=== PATIENT | male | born 1950 | race Caucasian/White ===

== ENCOUNTER 2016-10-23 16:34 | Inpatient (IN) | payer OTHER ==
[~2016-10-23] VITALS: Ht 167.6 cm; Wt 68.6 kg
[~2016-10-23 16:34] MED LIST: OMEP40CA6 PO; RANI300T PO
[2016-10-23 17:51] VITALS: TEMP 98.5
[2016-10-23 20:02] LABS: BASOPHILS % 0.3 % (0.0-2.0); EOSINOPHILS # 0.2 10^3/ul (0.0-0.5); EOSINOPHILS % 3.9 % (0.0-7.0); HEMATOCRIT 41.8 % (42.0-52.0); LYMPHOCYTES # 1.6 10^3/ul (0.8-2.9); LYMPHOCYTES % 26.2 % (15.0-51.0); MEAN CORPUSCULAR HEMOGLOBIN 32.8 pg (29.0-33.0); MEAN CORPUSCULAR HGB CONC 35.9 g/dl (32.0-37.0); MEAN CORPUSCULAR VOLUME 91.5 fl (82.0-101.0); MEAN PLATELET VOLUME 9.1 fl (7.4-10.4); MONOCYTE # 0.5 10^3/ul (0.3-0.9); MONOCYTES % 7.9 % (0.0-11.0); NEUTROPHIL # 3.7 10^3/ul (1.6-7.5); NEUTROPHILS % 61.5 % (39.0-77.0); PLATELET COUNT 218 10^3/UL (140-415); RED BLOOD COUNT 4.57 10^6/ul (4.70-6.10); RED CELL DISTRIBUTION WIDTH 12.1 % (11.5-14.5)
--- NOTE | 2016-10-23 20:10 | RADRPT ---
PROCEDURE: XR Chest. CLINICAL INDICATION: Chest pain. TECHNIQUE: Single frontal view. COMPARISON: 01/08/2015. FINDINGS: The lungs are clear. The heart size is normal. There is no pleural effusion. There is no pneumothorax. IMPRESSION: 1. Normal chest radiograph. 2. No change from 01/08/2015. RPTAT: QQ .Ariel Mathew MD, MD Date Time Electronically viewed and signed by .Ariel Mathew MD, MD on 10/23/2016 20:09 .R/
[2016-10-23 20:17] LABS: INR 1.15; PROTIME 14.7 Sec (12.2-14.2); PT RATIO 1.1
[2016-10-23 20:18] LABS: ANION GAP 19 (8-16); BLOOD UREA NITROGEN 19 mg/dl (7-20); CALCIUM 9.4 mg/dl (8.4-10.2); CARBON DIOXIDE 25 mmol/L (21-31); CHLORIDE 106 mmol/L (97-110); CREATININE 0.96 mg/dl (0.61-1.24); GLUCOSE 90 mg/dl (70-220); PARTIAL THROMBOPLASTIN TIME 36.2 Sec (25.0-35.0); SODIUM 146 mmol/L (135-144)
[2016-10-23 20:31] LABS: TROPONIN-I < 0.012 ng/ml (0.00-0.12)
--- NOTE | 2016-10-23 20:33 | ERA ---
ER Documentation Chief Complaint Date/Time DATE: 10/23/16 TIME: 20:29 Chief Complaint complains of dizziness x 1 week HPI This is a 66-year-old male with a past medical history of GERD who is presenting with approximately 4 days of dizziness. The patient reports that this is never happened before. He says that when he lies down, he feels okay. However when he brings his head up or tries to stand he feels very lightheaded and imbalanced. The patient does not have a cardiac history. He denies any history of hypertension or hyperlipidemia. He has never had a heart attack as far as he is aware. He has never had a stroke. The patient has felt well otherwise. He denies any changes in vision. He denies any chest pain or trouble breathing. He denies any abdominal pain. He does not have any weakness or numbness or tingling to the face or extremities ROS All systems reviewed and are negative except as per history of present illness. Medications Home Meds Reported Medications Ranitidine Hcl* (Ranitidine Hcl*) 300 Mg Tablet, 300 MG PO HS, #30 TAB 11/19/15 Omeprazole* (Omeprazole*) 40 Mg Capsule.dr, 40 MG PO DAILY, #30 CAP 11/19/15 Allergies Allergies: Coded Allergies: No Known Drug Allergies (Verified Allergy, Mild, 10/23/16) PMhx/Soc History of Surgery: Yes (APPENDECTOMY) Anesthesia Reaction: No Hx Neurological Disorder: No Hx Respiratory Disorders: No Hx Cardiac Disorders: No Hx Psychiatric Problems: No Hx Miscellaneous Medical Probl: Yes (GERD) Hx Alcohol Use: No Hx Substance Use: No Hx Tobacco Use: No Smoking Status: Never smoker FmHx Family History: No coronary disease, No diabetes Physical Exam Vitals Vital Signs Date Time Temp Pulse Resp B/P Pulse Ox O2 Delivery O2 Flow Rate FiO2 10/23/16 18:53 51 17 129/88 98 Room Air 10/23/16 17:51 98.5 53 20 143/94 97 Room Air 10/23/16 16:37 98.8 62 20 125/80 97 Physical Exam Const: No apparent distress Head: Atraumatic Eyes: Normal Conjunctiva ENT: Normal External Ears, Nose and Mouth. Neck: Full range of motion..~ No meningismus. Resp: Clear to auscultation bilaterally Cardio: Regular rhythm, no murmurs, bradycardia Abd: Soft, non tender, non distended. Normal bowel sounds Skin: No petechiae or rashes Back: No midline or flank tenderness Ext: No cyanosis, or edema Neur: Awake and alert Psych: Normal Mood and Affect Result Diagram: 10/23/16192910/23/161929 Results 24 hrs Laboratory Tests Test 10/23/16 19:30 White Blood Count 6.010^3/ul Red Blood Count 4.5710^6/ul Hemoglobin 15.0g/dl Hematocrit 41.8% Mean Corpuscular Volume 91.5fl Mean Corpuscular Hemoglobin 32.8pg Mean Corpuscular Hemoglobin Concent 35.9g/dl Red Cell Distribution Width 12.1% Platelet Count 61852^3/UL Mean Platelet Volume 9.1fl Neutrophils % 61.5% Lymphocytes % 26.2% Monocytes % 7.9% Eosinophils % 3.9% Basophils % 0.3% Nucleated Red Blood Cells % 0.0/100WBC Neutrophils # 3.710^3/ul Lymphocytes # 1.610^3/ul Monocytes # 0.510^3/ul Eosinophils # 0.210^3/ul Basophils # 0.010^3/ul Nucleated Red Blood Cells # 0.010^3/ul Prothrombin Time 14.7Sec Prothrombin Time Ratio 1.1 INR International Normalized Ratio 1.15 Activated Partial Thromboplast Time 36.2Sec Sodium Level 146mmol/L Potassium Level 4.0mmol/L Chloride Level 106mmol/L Carbon Dioxide Level 25mmol/L Anion Gap 19 Blood Urea Nitrogen 19mg/dl Creatinine 0.96mg/dl Glucose Level 90mg/dl Calcium Level 9.4mg/dl Troponin I < 0.012ng/ml Current Medications Medications (Trade) Dose Ordered Sig/Nissa Route PRN Reason Start Time Stop Time Status Last Admin Dose Admin Sodium Chloride (NS) 1,000 ml @ 1,000 mls/hr Q1H ONCE IV 10/23/16 21:00 10/23/16 21:59 DC 10/23/16 21:11 Ondansetron HCl (Zofran Inj) 4 mg ER BRIDGE PRN IV NAUSEA AND/OR VOMITING 10/23/16 21:30 10/24/16 21:29 Acetaminophen (Tylenol Tab) 650 mg ER BRIDGE PRN PO MILD PAIN/FEVER 10/23/16 21:30 10/24/16 21:29 Procedures/MDM The patient is presenting with dizziness. He is found to be significantly bradycardic on exam between 45 and 50 bpm. I am concerned about symptomatic bradycardia in this patient. EKG read by me: Rate/Rhythm: Regular rhythm, sinus bradycardia at 48 bpm Intervals: Normal Access: Normal Impression: No evidence of ischemia or arrhythmia. However, marketed sinus bradycardia with T-wave inversions in leads V3 through V5 and T-wave flattening in most other leads The patient's chest x-ray shows a normal cardiomediastinal silhouette. The patient does not have findings of pneumonia or pleural effusion or pulmonary edema. There are vascular markings to the periphery, and I do not suspect pneumothorax. The patient's blood work was obtained and reviewed. The patient's CBC, CMP and troponin were unremarkable at this time. While the workup is reassuring, the patient does appear to have symptomatic bradycardia that needs further workup. The patient will be admitted to the hospitalist service. He will likely require cardiology consultation. Departure Diagnosis: Primary Impression: Symptomatic sinus bradycardia Additional Impressions: Dizziness Pre-syncope Condition: AGUSTIN Eaton MD Oct 23, 2016 20:33
[2016-10-23] MEDS ORDERED: SOD CHLORIDE 0.9% 1,000 ML IV ONE (21:00)
[2016-10-23] MEDS ORDERED: ONDANSETRON 4 MG INJ IV PRN (21:30)
[2016-10-23] MEDS ORDERED: ACETAMINOPHEN 325 MG TAB PO PRN (21:30)
[2016-10-23] MEDS ORDERED: DOCUSATE SODIUM 100 MG CAP PO PRN (23:30)
[2016-10-23] MEDS ORDERED: BISACODYL (EC) 5 MG TAB PO PRN (23:30)
[2016-10-23] MEDS ORDERED: NACL 0.9% 3 ML SYG IV SCH (23:30)
[2016-10-23 23:43] VITALS: PULSE 48
[2016-10-23 23:49] VITALS: Ht 167.6 cm; Wt 68.6 kg
--- NOTE | 2016-10-23 23:49 | RADRPT ---
PROCEDURE: Noncontrast CT Head. CLINICAL INDICATION: Pain. TECHNIQUE: Noncontrast CT of the head was obtained. The administered radiation dose was CTDI vol = 44 mGy, DLP = 720 mGy-cm. COMPARISON: No pertinent prior examinations were submitted for comparison. FINDINGS: The ventricles and cortical sulci are mildly enlarged. There is mild decreased attenuation within t he periventricular and subcortical white matter compatible with chronic microvascular changes. There is no acute intracranial hemorrhage or extra-axial fluid collection. There is no mass effect . No midline shift is identified. There is no loss of cherry-white differentiation to suggest acute in farction. The orbits are within normal limits. Some mild mucosal thickening is scattered throughout the parana maxine sinuses. No destructive osseous lesion is identified. IMPRESSION: No acute findings. Mild diffuse parenchymal volume loss and chronic microvascular changes. RPTAT: HIKT .Melquiades Mckeon MD, MD Date Time Electronically viewed and signed by .Melquiades Mckeon MD, on 10/23/2016 23:48 .T/
[2016-10-24] VITALS (12 sets, daily range): BP systolic 115–150; BP diastolic 76–98; PULSE 41–53; RESP 17–18
[2016-10-24 01:46] LABS: CREATINE KINASE 205 IU/L (23-200)
[2016-10-24 02:17] LABS: CK-MB 2.16 ng/ml (0.0-2.4); TROPONIN-I < 0.012 ng/ml (0.00-0.12)
[2016-10-24] MEDS ORDERED: PANTOPRAZOLE 40 MG INJ IV SCH (06:00)
--- NOTE | 2016-10-24 06:04 | HP ---
Date/Time of Note Date/Time of Note DATE: 10/24/16 TIME: 05:51 Assessment/Plan VTE Prophylaxis VTE Prophylaxis Intervention: SCD's Lines/Catheters IV Catheter Type (from [facility]): Saline Lock Assessment/Plan Chief Complaint/Hosp Course This is a 58-year-old male being admitted to the telemetry floor for: #1 Symptomatic bradycardia: Patient was noted to have heart rates morning in the 40s-50s range. At the current time we will monitor him on telemetry. This likely could be the cause of his dizziness. Will check a echocardiogram. Will consult cardiology. Will check a TSH level hemoglobin A1c electrolytes and magnesium. Will trend cardiac enzymes. Will check a urine drug screen and alcohol level as well. EKG did show some T-wave inversions in V4 through V5. #2 headache: CAT scan of the brain did not show any acute abnormalities. Patient does not have any focal neurologic deficits on exam. This likely could be related to patient's bradycardia. Will continue to monitor. If these headaches persist may consider advanced imaging with MRI. May consider consulting neurology. #3 DVT and GI prophylaxis: SCDs, Protonix Further treatment strategy will be implemented as per the clinical course Problems: HPI/ROS Admit Date/Time Admit Date/Time Oct 23, 2016 at 21:10 Hx of Present Illness Chief complaint: Dizziness and headache 1 week This is a 66-year-old male with a past medical history of GERD who is presenting with approximately 4 days of dizziness. The patient reports that this is never happened before. He says that when he lies down, he feels okay. However when he brings his head up or tries to stand he feels very lightheaded and imbalanced. The patient does not have a cardiac history. He denies any history of hypertension or hyperlipidemia. He has never had a heart attack as far as he is aware. He has never had a stroke. The patient has felt well otherwise. He denies any changes in vision. He denies any chest pain or trouble breathing. He denies any abdominal pain. He does not have any weakness or numbness or tingling to the face or extremities. Patient does note that along with the dizziness he also experienced headache on and off for about 1 week as well as some blurry vision. Allergies: NKDA Medications: See LEVON VILLALBA Const: As per HPI Eyes : As per HPI ENT: No pain, sore throat, congestion, congestion, dysphagia or discharge Respiratory: No shortness of breath, cough, sputum, wheezing, or pleuritic pain Cardiovascular: No chest pain, palpitation, PND, or edema GI : no change in appetite, abdominal pain, nausea, vomiting, diarrhea, constipation, or change in the color his stool Genitourinary: No dysuria, hematuria, flank pain , discharge or CVA tenderness Musculoskeletal: No joint pain, back pain, neck pain, restricted range of motion in neck or joints Skin: No rash, bruising or hives Neuro: As per HPI Endocrine: No polyuria, polydipsia, temperature intolerance Psych: No hallucination, depression, anxiety or suicidal ideation PMH/Family/Social Past Medical History Reflux Past Surgical History Past Surgical Hx: appendectomy Family History Significant Family History: diabetes Social History Alcohol Use: occasionally Smoking Status: Never smoker Exam/Review of Systems Vital Signs Vitals Vital Signs Date Time Temp Pulse Resp B/P Pulse Ox O2 Delivery O2 Flow Rate FiO2 10/24/16 04:45 41 10/24/16 04:32 97.6 17 120/77 100 10/23/16 23:12 Room Air Intake and Output 10/23/16 10/23/16 10/24/16 14:59 22:59 06:59 Intake Total 120 ml Balance 120 ml Exam Exam General: Patient is well-developed lying in bed in no acute distress HEENT: Atraumatic, normocephalic. The pupils are equal, round and reactive. Extraocular motor are intact Neck: Supple with full range of motion. No rigidity or meningismus Lungs: Clear to auscultation bilaterally no crackles rales or wheezing Heart: Sinus bradycardia cord , no murmur, S3, or S4 Abdomen: Soft , nontender, nondistended , bowel sounds are present. No guarding no rebound tenderness , No masses or organomegaly. No costovertebral temporal angle mass Extremities: Normal to inspection, no edema no cyanosis Neurologic: Normal mental status, speech normal, cranial nerves II through XII are intact, motor and sensory are intact, he states that when he does from a lying to a seated position he does feel slightly dizzy. Additional Comments PROCEDURE: Noncontrast CT Head. CLINICAL INDICATION: Pain. TECHNIQUE: Noncontrast CT of the head was obtained. The administered radiation dose was CTDI vol = 44 mGy, DLP = 720 mGy-cm. COMPARISON: No pertinent prior examinations were submitted for comparison. FINDINGS: The ventricles and cortical sulci are mildly enlarged. There is mild decreased attenuation within the periventricular and subcortical white matter compatible with chronic microvascular changes. There is no acute intracranial hemorrhage or extra-axial fluid collection. There is no mass effect. No midline shift is identified. There is no loss of cherry-white differentiation to suggest acute infarction. The orbits are within normal limits. Some mild mucosal thickening is scattered throughout the paranasal sinuses. No destructive osseous lesion is identified. IMPRESSION: No acute findings. Mild diffuse parenchymal volume loss and chronic microvascular changes. RPTAT: HIKT .Melquiades Mckeon MD, MD Date Time Electronically viewed and signed by .Melquiades Mckeon MD, on 10/23/2016 23:48 .T/PROCEDURE: XR Chest. CLINICAL INDICATION: Chest pain. TECHNIQUE: Single frontal view. COMPARISON: 01/08/2015. FINDINGS: The lungs are clear. The heart size is normal. There is no pleural effusion. There is no pneumothorax. IMPRESSION: 1. Normal chest radiograph. 2. No change from 01/08/2015. RPTAT: QQ .Ariel Mathew MD, Date Time Electronically viewed and signed by .Ariel Mathew MD, MD on 10/23/2016 20:09 EKG: Rate/Rhythm:, sinus bradycardia at 48 bpm Intervals: Normal Access: Normal Impression: No evidence of ischemia or arrhythmia. However, marketed sinus bradycardia with T-wave inversions in leads V3 through V5 and T-wave flattening in most other leads As per ED physician documentation Labs Result Diagram: 10/23/16192910/23/161929 Medications Medications Current Medications Docusate Sodium (Colace) 100 mg Q12H PRN PO CONSTIPATION; Start 10/23/16 at 23: 30 Bisacodyl (Dulcolax) 5 mg DAILY PRN PO CONSTIPATION; Start 10/23/16 at 23:30 Pantoprazole (Protonix Iv) 40 mg DAILY@06 IV ; Start 10/24/16 at 06:00 KHOA HOLMAN Oct 24, 2016 06:03
[2016-10-24 07:52] LABS: BASOPHILS % 0.4 % (0.0-2.0); EOSINOPHILS # 0.3 10^3/ul (0.0-0.5); EOSINOPHILS % 5.8 % (0.0-7.0); HEMATOCRIT 40.8 % (42.0-52.0); HEMOGLOBIN 14.2 g/dl (14.0-18.0); LYMPHOCYTES # 1.4 10^3/ul (0.8-2.9); LYMPHOCYTES % 25.7 % (15.0-51.0); MEAN CORPUSCULAR HEMOGLOBIN 31.8 pg (29.0-33.0); MEAN CORPUSCULAR HGB CONC 34.8 g/dl (32.0-37.0); MEAN CORPUSCULAR VOLUME 91.5 fl (82.0-101.0); MEAN PLATELET VOLUME 9.1 fl (7.4-10.4); MONOCYTE # 0.4 10^3/ul (0.3-0.9); MONOCYTES % 7.3 % (0.0-11.0); NEUTROPHIL # 3.2 10^3/ul (1.6-7.5); NEUTROPHILS % 60.4 % (39.0-77.0); PLATELET COUNT 207 10^3/UL (140-415); RED BLOOD COUNT 4.46 10^6/ul (4.70-6.10); RED CELL DISTRIBUTION WIDTH 12.4 % (11.5-14.5); WHITE BLOOD COUNT 5.3 10^3/ul (4.8-10.8)
[2016-10-24 08:22] LABS: CHOL/HDL RATIO 6.6 RATIO; CREATININE 0.89 mg/dl (0.61-1.24); MAGNESIUM 2.1 mg/dl (1.7-2.5); POTASSIUM 3.9 mmol/L (3.5-5.1)
[2016-10-24 08:28] LABS: CREATINE KINASE 202 IU/L (23-200)
[2016-10-24 08:41] LABS: CK-MB 2.14 ng/ml (0.0-2.4); TROPONIN-I < 0.012 ng/ml (0.00-0.12)
[2016-10-24 09:28] LABS: THYROID STIMULATING HORMONE 2.69 MIU/L (0.465-4.680)
--- NOTE | 2016-10-24 10:22 | RADRPT ---
Echocardiogram Report Patient Name: REGGIE VEGA Gender: Male Date: 1950 Study Date: 24-Oct-2016 Glue Wheel Operator: Luis Nash [place] Location: 525 Ref. Physician: KHOA HOLMAN Quality: Good Procedures: Transthoracic echocardiogram with complete 2D, M-Mode, and doppler examination. Indications: Bradycardia. 2D/M Mode Doppler Measurement Value Normal Ranges Measurement Value Normal Ranges LVIDd 2D 5.3 3.5 - 5.6 cm AV Peak Roger 1.2 m/sec LVIDs 2D 3.1 2.1 - 4.1 cm AV Peak PG 6.0 mmHg FS 2D 42.0 % LVOT Peak Roger 1.0 m/sec LVPWd 2D 1.0 0.6 - 1.1 cm LVOT Peak PG 4.0 mmHg IVSd 2D 1.1 0.6 - 1.1 cm MV E Peak Roger 0.7 m/sec IVS/LVPW 2D 1.1 MV A Peak Roger 0.5 m/sec AoR Diam 2D 3.2 2.0 - 3.7 cm MV E/A 1.4 LA/Ao 2D 1 0 - 1 MV Decel Time 165 msec EDV 2D 151.0 cm3 MV E/A 1.4 ESV 2D 29.5 cm3 TR Peak Roger 2.5 m/sec LA Dimen 2D 3.8 2.3 - 4.0 cm TR Peak PG 26.0 mmHg RVSP 36.0 mmHg Findings Left Ventricle: Normal left ventricular systolic function. Normal left ventricular cavity size. Normal left ventricular wall thickness. Ejection fraction is visually estimated at 5055 %. Tissue Doppler/Mitral Doppler indices are within normal limits. Right Ventricle: Normal right ventricular size. Normal right ventricular systolic function. Left Atrium: The left atrium is normal in size. Right Atrium: The right atrium is normal in size. Mitral Valve: Mitral valve leaflets appear mildly thickened. Mild mitral annular calcification. Trace mitral regurgitation. Aortic Valve: Normal appearance of the aortic valve. No significant aortic stenosis or insufficiency. Tricuspid Valve: Normal appearance of the tricuspid valve. Estimated peak PA systolic pressure 36 mmHg. There is mild tricuspid regurgitation. Pulmonic Valve: Normal pulmonic valve appearance. Pericardium: Normal pericardium with no significant pericardial effusion. Aorta: Normal aortic root. IVC: Normal size and normal respiratory collapse consistent with normal right atrial pressure. Conclusions 1.Normal left ventricular systolic function. Normal left ventricular cavity size. Normal left ventricular wall thickness. Ejection fraction is visually estimated at 50-55 %. Tissue Doppler/Mitral Doppler indices are within normal limits. 2.Mitral valve leaflets appear mildly thickened. Mild mitral annular calcification. Trace mitral regurgitation. 3.Normal appearance of the aortic valve. No significant aortic stenosis or insufficiency. 4.Normal appearance of the tricuspid valve. Estimated peak PA systolic pressure 36 mmHg. There is mild tricuspid regurgitation. Electronically Signed By: Buck Hastings 24-Oct-2016 10:21:35 -0700 Patient Name: REGGIE VEGA Study Date: 24-Oct-2016 [id number]
[2016-10-24 13:40] LABS: ADD UMIC NO; UR ASCORBIC ACID NEGATIVE (NEGATIVE); UR BILIRUBIN (Dip) NEGATIVE (NEGATIVE); UR BLOOD (Dip) NEGATIVE (NEGATIVE); UR CLARITY CLEAR (CLEAR); UR COLOR YELLOW (YELLOW); UR GLUCOSE (Dip) NEGATIVE (NEGATIVE); UR KETONES (Dip) NEGATIVE (NEGATIVE); UR LEUKOCYTE ESTERASE (Dip) NEGATIVE Leu/ul (NEGATIVE); UR NITRITE (Dip) NEGATIVE (NEGATIVE); UR SPECIFIC GRAVITY (Dip) 1.021 (1.003-1.030); UR TOTAL PROTEIN (Dip) NEGATIVE (NEGATIVE); UR UROBILINOGEN (Dip) NEGATIVE (NEGATIVE)
[2016-10-24 14:00] LABS: BARBITURATES Negative (NEGATIVE); BENZODIAZEPINES Negative (NEGATIVE); CANNABINOIDS Negative (NEGATIVE); COCAINE Negative (NEGATIVE); OPIATES Negative (NEGATIVE)
--- NOTE | 2016-10-24 14:48 | CONS ---
Date/Time of Note Date/Time of Note DATE: 10/24/16 TIME: 14:41 Assessment/Plan Assessment/Plan Chief Complaint/Hosp Course Assessment plan: 1. Marked sinus bradycardia: At this point is unclear to me if it has any relationship to his symptoms or not. I will order a treadmill stress test for tomorrow to see if he has a normal heart rate response to exercise, or not this would indicate severe sick sinus syndrome. Thyroid function test was within normal limits. We will monitor him on telemetry for now rule out any evidence of heart block 2. Dizziness and vertigo consistent with vertigo symptoms. I will start the patient on meclizine. Neuro: Treatment as per internal medicine. Consider neurology consultation if does not improve. 3. Abnormal EKG with no complaints of chest pain at this point. 4. History of gastroesophageal reflux is currently stable. Thank you for his referral I will continue to follow along with you. Problems: Consultation Date/Type/Reason Admit Date/Time Oct 23, 2016 at 21:10 Date of Consultation: Oct 24, 2016 Type of Consultation: CARDIOLOGY Reason for Consultation BRADYCARDIA. Referring Provider: KHOA HOLMAN of Present Illness CC: dizziness. headache HPI: Dear Dr. Trinh thank you for his referral. To see was from the patient. Review of the chart. Discussion with staff. This is a 66-year-old gentleman with no past cardiac history who came to emergency room complaining patient says of the past 2 days she has been having dizziness and some headache. He described as the mostly vertigo-like symptoms with the room spinning around him. He gets worse when he moves around and when he moves his head. He has poor balance. He was noted to be markedly bradycardic in sinus bradycardia with heart rate of as low as 39. He denies any syncope presyncope to me denies any chest pain to me. He receives it was discussed with the staff. I had the patient walk around and the monitor and appeared to have slight improvement is harder but still remained low. Past medical history esophageal reflux disease. Medication as home as per medical reconciliation sheet. Social history patient does not smoke or drink. Family history no reported coronary artery disease. Allergies no known drug allergies. Review of system as above only. Patient is a normally active and walks about half an hour. Past Surgical History Past Surgical Hx: appendectomy Social History Alcohol Use: occasionally Smoking Status: Never smoker Exam/Review of Systems Vital Signs Vitals Vital Signs Date Time Temp Pulse Resp B/P Pulse Ox O2 Delivery O2 Flow Rate FiO2 10/24/16 12:32 49 10/24/16 12:13 97.8 18 126/82 99 10/23/16 23:12 Room Air Intake and Output 10/23/16 10/23/16 10/24/16 15:00 23:00 07:00 Intake Total 120 ml Balance 120 ml Exam General: no acute distress HEENT: NC/AT. pupils are equal. round. NECK: NO JVD. no stridor. CV: Bradycardic. systolic murmur; no gallop or rubs. PULM: no wheezing or rhonchi. GI: SOFT, NT, ND, no rebound or guarding Extremity: trace B/L LE edema. no clubbing. neuro: awake and alert, OX3. Psych: calm and pleasant rectal: deferred : normal ECG marked sinus ron with nonspecific ST T abn ECHO reviewed: 1. Normal left ventricular systolic function. Normal left ventricular cavity size. Normal left ventricular wall thickness. Ejection fraction is visually estimated at 50-55 %. Tissue Doppler/Mitral Doppler indices are within normal limits. 2. Mitral valve leaflets appear mildly thickened. Mild mitral annular calcification. Trace mitral regurgitation. 3. Normal appearance of the aortic valve. No significant aortic stenosis or insufficiency. 4. Normal appearance of the tricuspid valve. Estimated peak PA systolic pressure 36 mmHg. There is mild tricuspid regurgitation. Results Result Diagram: 10/24/16 0721 10/24/16720 Results 24 hrs Laboratory Tests Test 10/23/16 19:30 10/24/16 01:10 10/24/16 07:21 10/24/16 12:50 White Blood Count 6.0 5.3 Red Blood Count 4.57 L 4.46 L Hemoglobin 15.0 14.2 Hematocrit 41.8 L 40.8 L Mean Corpuscular Volume 91.5 91.5 Mean Corpuscular Hemoglobin 32.8 31.8 Mean Corpuscular Hemoglobin Concent 35.9 34.8 Red Cell Distribution Width 12.1 12.4 Platelet Count 218 207 Mean Platelet Volume 9.1 9.1 Neutrophils % 61.5 60.4 Lymphocytes % 26.2 25.7 Monocytes % 7.9 7.3 Eosinophils % 3.9 5.8 Basophils % 0.3 0.4 Nucleated Red Blood Cells % 0.0 0.0 Neutrophils # 3.7 3.2 Lymphocytes # 1.6 1.4 Monocytes # 0.5 0.4 Eosinophils # 0.2 0.3 Basophils # 0.0 0.0 Nucleated Red Blood Cells # 0.0 0.0 Prothrombin Time 14.7 H Prothrombin Time Ratio 1.1 INR International Normalized Ratio 1.15 Activated Partial Thromboplast Time 36.2 H Sodium Level 146 H 147 H Potassium Level 4.0 3.9 Chloride Level 106 109 Carbon Dioxide Level 25 24 Anion Gap 19 H 18 H Blood Urea Nitrogen 19 20 Creatinine 0.96 0.89 Glucose Level 90 95 Calcium Level 9.4 9.0 Troponin I < 0.012 < 0.012 < 0.012 Creatine Kinase 205 H 202 H Creatine Kinase Index 1.1 1.1 Creatinine Kinase MB (Mass) 2.16 2.14 Hemoglobin A1c 5.0 Magnesium Level 2.1 Triglycerides Level 107 Cholesterol Level 140 LDL Cholesterol, Calculated 98 HDL Cholesterol 21 L Cholesterol/HDL Ratio 6.6 Thyroid Stimulating Hormone (TSH) 2.690 Ethyl Alcohol Level < 10.0 Urine Color YELLOW Urine Clarity CLEAR Urine pH 6.0 Urine Specific [place] 1.021 Urine Ketones NEGATIVE Urine Nitrite NEGATIVE Urine Bilirubin NEGATIVE Urine Urobilinogen NEGATIVE Urine Leukocyte Esterase NEGATIVE Urine Hemoglobin NEGATIVE Urine Glucose NEGATIVE Urine Total Protein NEGATIVE Urine Opiates Screen Negative Urine Barbiturates Negative Urine Amphetamines Screen Negative Urine Benzodiazepines Screen Negative Urine Cocaine Screen Negative Urine Cannabinoids Negative Medications Medications Current Medications Docusate Sodium (Colace) 100 mg Q12H PRN PO CONSTIPATION; Start 10/23/16 at 23: 30 Bisacodyl (Dulcolax) 5 mg DAILY PRN PO CONSTIPATION; Start 10/23/16 at 23:30 Pantoprazole (Protonix Tab) 40 mg DAILY@06 PO ; Start 10/25/16 at 06:00 DUSTY AGRAWAL MD Oct 24, 2016 14:48
[2016-10-24] MEDS: MECLIZINE 25 MG TAB PO SCH (21:23)
[2016-10-25] VITALS (8 sets, daily range): BP systolic 102–126; BP diastolic 60–81; PULSE 44–65; RESP 17–19
[2016-10-25] MEDS ORDERED: PANTOPRAZOLE (EC) 40 MG TAB PO SCH (06:00)
[2016-10-25] MEDS: MECLIZINE 25 MG TAB PO SCH ×2 (07:40→12:28)
[2016-10-25 08:01] LABS: BASOPHILS % 0.6 % (0.0-2.0); EOSINOPHILS # 0.3 10^3/ul (0.0-0.5); EOSINOPHILS % 5.2 % (0.0-7.0); HEMATOCRIT 47.3 % (42.0-52.0); HEMOGLOBIN 16.4 g/dl (14.0-18.0); LYMPHOCYTES # 2.1 10^3/ul (0.8-2.9); MEAN CORPUSCULAR HEMOGLOBIN 31.8 pg (29.0-33.0); MEAN CORPUSCULAR HGB CONC 34.7 g/dl (32.0-37.0); MEAN CORPUSCULAR VOLUME 91.7 fl (82.0-101.0); MEAN PLATELET VOLUME 9.1 fl (7.4-10.4); MONOCYTE # 0.5 10^3/ul (0.3-0.9); MONOCYTES % 7.8 % (0.0-11.0); NEUTROPHIL # 3.5 10^3/ul (1.6-7.5); NEUTROPHILS % 54.2 % (39.0-77.0); PLATELET COUNT 221 10^3/UL (140-415); RED BLOOD COUNT 5.16 10^6/ul (4.70-6.10); RED CELL DISTRIBUTION WIDTH 12.2 % (11.5-14.5); WHITE BLOOD COUNT 6.5 10^3/ul (4.8-10.8)
[2016-10-25 08:26] LABS: CREATINE KINASE 178 IU/L (23-200)
[2016-10-25 08:28] LABS: ALBUMIN 4.7 g/dl (3.3-4.9); ALBUMIN/GLOBULIN RATIO 1.23; BILIRUBIN,INDIRECT 0.8 mg/dl (0-1.1); BILIRUBIN,TOTAL 0.8 mg/dl (0.2-1.3); CALCIUM 9.6 mg/dl (8.4-10.2); CREATININE 0.97 mg/dl (0.61-1.24); TOTAL PROTEIN 8.5 g/dl (6.1-8.1)
[2016-10-25 08:42] LABS: CK-MB 1.93 ng/ml (0.0-2.4); TROPONIN-I < 0.012 ng/ml (0.00-0.12)
--- NOTE | 2016-10-25 09:03 | CONS ---
Date/Time of Note Date/Time of Note DATE: 10/25/16 TIME: 09:00 Consult Date/Type/Reason Admit Date/Time Oct 23, 2016 at 21:10 Initial Consult Date 10/24/16 Type of Consultation: CARDIOLOGY Ordering Provider: KHOA HOLMAN d./w staff and rhythm was reviewed. pt remains in sinus ron mostly no more dizziness and has mild headache only. no chest pain or pressure or palpitations. Objective Vital Signs Date Time Temp Pulse Resp B/P Pulse Ox O2 Delivery O2 Flow Rate FiO2 10/25/16 08:55 65 10/25/16 07:13 98.2 19 126/80 95 10/23/16 23:12 Room Air Intake and Output 10/24/16 10/24/16 10/25/16 15:00 23:00 07:00 Intake Total 840 ml Balance 840 ml Exam General: no acute distress HEENT: NC/AT. pupils are equal. round. NECK: NO JVD. no stridor. CV: Bradycardic. systolic murmur; no gallop or rubs. PULM: no wheezing or rhonchi. GI: SOFT, NT, ND, no rebound or guarding Extremity: trace B/L LE edema. no clubbing. neuro: awake and alert, OX3. Psych: calm and pleasant rectal: deferred : normal ECG marked sinus ron with nonspecific ST T abn ECHO reviewed: 1. Normal left ventricular systolic function. Normal left ventricular cavity size. Normal left ventricular wall thickness. Ejection fraction is visually estimated at 50-55 %. Tissue Doppler/Mitral Doppler indices are within normal limits. 2. Mitral valve leaflets appear mildly thickened. Mild mitral annular calcification. Trace mitral regurgitation. 3. Normal appearance of the aortic valve. No significant aortic stenosis or insufficiency. 4. Normal appearance of the tricuspid valve. Estimated peak PA systolic pressure 36 mmHg. There is mild tricuspid regurgitation. Results/Medications Result Diagram: 10/25/16 0733 10/25/16 0733 Results 24 hrs Laboratory Tests Test 10/24/16 12:50 10/25/16 07:33 Urine Color YELLOW Urine Clarity CLEAR Urine pH 6.0 Urine Specific [place] 1.021 Urine Ketones NEGATIVE Urine Nitrite NEGATIVE Urine Bilirubin NEGATIVE Urine Urobilinogen NEGATIVE Urine Leukocyte Esterase NEGATIVE Urine Hemoglobin NEGATIVE Urine Glucose NEGATIVE Urine Total Protein NEGATIVE Urine Opiates Screen Negative Urine Barbiturates Negative Urine Amphetamines Screen Negative Urine Benzodiazepines Screen Negative Urine Cocaine Screen Negative Urine Cannabinoids Negative White Blood Count 6.5 # Red Blood Count 5.16 Hemoglobin 16.4 Hematocrit 47.3 Mean Corpuscular Volume 91.7 Mean Corpuscular Hemoglobin 31.8 Mean Corpuscular Hemoglobin Concent 34.7 Red Cell Distribution Width 12.2 Platelet Count 221 Mean Platelet Volume 9.1 Neutrophils % 54.2 Lymphocytes % 32.0 Monocytes % 7.8 Eosinophils % 5.2 Basophils % 0.6 Nucleated Red Blood Cells % 0.0 Neutrophils # 3.5 Lymphocytes # 2.1 Monocytes # 0.5 Eosinophils # 0.3 Basophils # 0.0 Nucleated Red Blood Cells # 0.0 Sodium Level 146 H Potassium Level 4.0 Chloride Level 101 Carbon Dioxide Level 28 Anion Gap 21 H Blood Urea Nitrogen 21 H Creatinine 0.97 Glucose Level 84 Calcium Level 9.6 Total Bilirubin 0.8 Direct Bilirubin 0.00 Indirect Bilirubin 0.8 Aspartate Amino Transf (AST/SGOT) 35 Alanine Aminotransferase (ALT/SGPT) 42 Alkaline Phosphatase 74 Creatine Kinase 178 Creatine Kinase Index 1.1 Creatinine Kinase MB (Mass) 1.93 Troponin I < 0.012 Total Protein 8.5 H Albumin 4.7 Globulin 3.80 H Albumin/Globulin Ratio 1.23 Free Thyroxine 0.79 Medications Current Medications Docusate Sodium (Colace) 100 mg Q12H PRN PO CONSTIPATION; Start 10/23/16 at 23: 30 Bisacodyl (Dulcolax) 5 mg DAILY PRN PO CONSTIPATION; Start 10/23/16 at 23:30 Pantoprazole (Protonix Tab) 40 mg DAILY@06 PO Last administered on 10/25/16 06: 14; Admin Dose 40 MG; Start 10/25/16 at 06:00 Meclizine HCl (Antivert) 25 mg TID PO Last administered on 10/24/16 21:23; Admin Dose 25 MG; Start 10/24/16 at 21:00 Assessment/Plan Chief Complaint/Hosp Course Assessment plan: 1. Marked sinus bradycardia: I doubt it has any relationship to his symptoms treadmill stress test showed normal exercise tolerance and normal HR response to exercise. Thyroid function test was within normal limits. no evidence of heart block on tele no further cardiac work up is indicated. 2. Dizziness and vertigo consistent with vertigo symptoms. I have started the the patient on meclizine. Neuro Treatment as per internal medicine. 3. Abnormal EKG with no complaints of chest pain at this point. TMST did not show any ischemia. 4. History of gastroesophageal reflux is currently stable. Thank you for his referral I will continue to follow along with you. Problems: DUSTY AGRAWAL MD Oct 25, 2016 09:03
[2016-10-25 09:36] LABS: MAGNESIUM 2.2 mg/dl (1.7-2.5); PHOSPHORUS 3.9 mg/dl (2.5-4.9)
[2016-10-25 09:55] LABS: T3 UPTAKE 34.4 % (23.5-40.5)
[2016-10-25 10:08] LABS: THYROID STIMULATING HORMONE 4.67 MIU/L (0.465-4.680)
--- NOTE | 2016-10-25 15:06 | PDOCDIS ---
Discharge Instructions DIAGNOSIS Discharge Diagnosis Sinus bradycardia. Vertigo. CONDITION Patient Condition: Stable HOME CARE INSTRUCTIONS: Special Diet: cardiac FOLLOW UP/APPOINTMENTS Follow-up Plan Kvng Albrecht MD Specialty: Internal Medicine Office Address: [address] [place], [place] [id number] Office OTHER ORDERS: Other Orders: 1. Take a regular diet. 2. Take medications as needed for any dizziness. 3. If you continue to have dizziness, please follow-up with the nearest emergency room. 4. Follow-up with your primary care physician 1 week. If you do not have a primary care physician, please call Dr. Kvng Albrecht's office. OSMAN CHEN NP Oct 25, 2016 15:06
[2016-10-25] MEDS ORDERED: MECL-77 PO (15:07)
--- NOTE | 2016-10-25 16:22 | DS ---
Date/Time of Note Date/Time of Note DATE: 10/25/16 TIME: 16:20 Discharge Summary Admission/Discharge Info Admit Date/Time Oct 23, 2016 at 21:10 Discharge Date/Time Oct 25, 2016 at 15:29 Discharge Diagnosis 1. Sinus bradycardia. 2. Benign positional vertigo. Patient Condition: Stable Consults 1. Buck Hastings MD, Cardiology. Procedures Brain CT IMPRESSION: No acute findings. Mild diffuse parenchymal volume loss and chronic microvascular changes. 2D Echocardiogram Conclusions 1. Normal left ventricular systolic function. Normal left ventricular cavity size. Normal left ventricular wall thickness. Ejection fraction is visually estimated at 50-55 %. Tissue Doppler/Mitral Doppler indices are within normal limits. 2. Mitral valve leaflets appear mildly thickened. Mild mitral annular calcification. Trace mitral regurgitation. 3. Normal appearance of the aortic valve. No significant aortic stenosis or insufficiency. 4. Normal appearance of the tricuspid valve. Estimated peak PA systolic pressure 36 mmHg. There is mild tricuspid regurgitation. Hx of Present Illness Chief complaint: Dizziness and headache 1 week This is a 66-year-old male with a past medical history of GERD who is presenting with approximately 4 days of dizziness. The patient reports that this is never happened before. He says that when he lies down, he feels okay. However when he brings his head up or tries to stand he feels very lightheaded and imbalanced. The patient does not have a cardiac history. He denies any history of hypertension or hyperlipidemia. He has never had a heart attack as far as he is aware. He has never had a stroke. The patient has felt well otherwise. He denies any changes in vision. He denies any chest pain or trouble breathing. He denies any abdominal pain. He does not have any weakness or numbness or tingling to the face or extremities. Patient does note that along with the dizziness he also experienced headache on and off for about 1 week as well as some blurry vision. Allergies: NKDA Medications: See MAR Hospital Course The patient was admitted to inpatient telemetry floor. The patient was noticed to be significantly bradycardic. Hence a cardiology consult was obtained. The patient was not on any AV mendoza blocking agents. The patient had no evidence of any heart block. The patient underwent a 2D echocardiogram that showed preserved left ventricular ejection fraction. The patient underwent a treadmill cardiac stress test that was negative for any ischemia. The patient is a complaint of dizziness was a concluded to be secondary to benign positional vertigo. The patient was started on meclizine with improvement of the patient's symptoms. The patient's brain CT scan was negative for any acute findings. Cardiology cleared the patient for a discharge. The patient will be discharged home on a as needed meclizine. The patient was instructed to follow- up with his primary care physician in 1 week. Discharge Instructions 1. Take a regular diet. 2. Take medications as needed for any dizziness. 3. If you continue to have dizziness, please follow-up with the nearest emergency room. 4. Follow-up with your primary care physician 1 week. If you do not have a primary care physician, please call Dr. Kvng Albrecht's office. The patient verbalized understanding of his discharge instructions. I would like to thank Dr. Hastings for seeing the patient and providing clinical recommendations. Case discussed with Dr. Harris [place] [facility] Active Scripts Meclizine Hcl* (Meclizine Hcl*) 25 Mg Tablet, 25 MG PO TID for Dizziness, #14 TAB Prov:OSMAN CHEN [employer]OVER 10/25/16 Reported Medications Omeprazole* (Omeprazole*) 40 Mg Capsule., 40 MG PO DAILY, #30 CAP 11/19/15 Discontinued Reported Medications Ranitidine Hcl* (Ranitidine Hcl*) 300 Mg Tablet, 300 MG PO HS, #30 TAB 11/19/15 Follow-up Plan Follow-up with your primary care physician 1 week. Primary Care Provider Harmony Barrera MD Pending Labs Laboratory Tests Test 10/25/16 07:33 White Blood Count 6.510^3/ul (4.8-10.8) Red Blood Count 5.1610^6/ul (4.70-6.10) Hemoglobin 16.4g/dl (14.0-18.0) Hematocrit 47.3% (42.0-52.0) Mean Corpuscular Volume 91.7fl (82.0-101.0) Mean Corpuscular Hemoglobin 31.8pg (29.0-33.0) Mean Corpuscular Hemoglobin Concent 34.7g/dl (32.0-37.0) Red Cell Distribution Width 12.2% (11.5-14.5) Platelet Count 76650^3/UL (140-415) Mean Platelet Volume 9.1fl (7.4-10.4) Neutrophils % 54.2% (39.0-77.0) Lymphocytes % 32.0% (15.0-51.0) Monocytes % 7.8% (0.0-11.0) Eosinophils % 5.2% (0.0-7.0) Basophils % 0.6% (0.0-2.0) Nucleated Red Blood Cells % 0.0/100WBC (0.0-0.0) Neutrophils # 3.510^3/ul (1.6-7.5) Lymphocytes # 2.110^3/ul (0.8-2.9) Monocytes # 0.510^3/ul (0.3-0.9) Eosinophils # 0.310^3/ul (0.0-0.5) Basophils # 0.010^3/ul (0.0-0.1) Nucleated Red Blood Cells # 0.010^3/ul (0.0-0.0) Sodium Level 146mmol/L (135-144) Potassium Level 4.0mmol/L (3.5-5.1) Chloride Level 101mmol/L (97-110) Carbon Dioxide Level 28mmol/L (21-31) Anion Gap 21 (8-16) Blood Urea Nitrogen 21mg/dl (7-20) Creatinine 0.97mg/dl (0.61-1.24) Glucose Level 84mg/dl (70-220) Calcium Level 9.6mg/dl (8.4-10.2) Phosphorus Level 3.9mg/dl (2.5-4.9) Magnesium Level 2.2mg/dl (1.7-2.5) Total Bilirubin 0.8mg/dl (0.2-1.3) Direct Bilirubin 0.00mg/dl (0.00-0.20) Indirect Bilirubin 0.8mg/dl (0-1.1) Aspartate Amino Transf (AST/SGOT) 35IU/L (15-46) Alanine Aminotransferase (ALT/SGPT) 42IU/L (13-69) Alkaline Phosphatase 74IU/L (42-121) Creatine Kinase 178IU/L (23-200) Creatine Kinase Index 1.1 Creatinine Kinase MB (Mass) 1.93ng/ml (0.0-2.4) Troponin I < 0.012ng/ml (0.00-0.12) Total Protein 8.5g/dl (6.1-8.1) Albumin 4.7g/dl (3.3-4.9) Globulin 3.80g/dl (1.3-3.2) Albumin/Globulin Ratio 1.23 Thyroid Stimulating Hormone (TSH) 4.670MIU/L (0.465-4.680) Free Thyroxine 0.79ng/dl (0.78-2.44) Free Thyroxine Index 2.24ug/ml (0.65-3.89) Thyroxine (T4) 6.5ug/dl (5.5-11.0) Triiodothyronine (T3) Uptake 34.4% (23.5-40.5) OSMAN CHEN NP Oct 25, 2016 16:22
== END 2016-10-25 15:29 | disposition home or self-care (01) | DRG 310 ==
LOC: E/R 16:34 → TEL 21:10
PROVIDERS: ADMIT Family Medicine; ATTEND Family Medicine
DX: R00.1 Bradycardia, unspecified (principal); H81.10 Benign paroxysmal vertigo, unspecified ear; K21.9 Gastro-esophageal reflux disease without esophagitis
CPT/HCPCS: 70450; 71010; 80048; 80053; 80061; 80306; 80307; 81003; 82550; 82553; 83036; 83735; 84100; 84436; 84439; 84443; 84479; 84484; 85025; 85610; 85730; 93005; 93017; 93306; C9113; J7030

== ENCOUNTER 2017-08-17 08:07 | Emergency (ER) | END 2017-08-17 10:42 | disposition home or self-care (01) ==